=== PATIENT | female | born 1955 | race Caucasian/White ===

== ENCOUNTER 2016-09-11 08:31 | Day surgery (SDC) ==
[2016-09-11] MEDS ORDERED: VERSED ONE (09:30)
[2016-09-11] MEDS ORDERED: DIPRIVAN 20 ML VIAL IVP ONE (09:30)
[2016-09-11 10:51] VITALS: BP 118/78; TEMP 98.7
--- NOTE | 2016-09-12 09:30 | OP ---
PROCEDURE: COLON TO THE CECUM; SNARE POLYPECTOMY. ENDOSCOPIST: Dmitry LOCKWOOD M.D. INDICATION: History of Polyps. INSTRUMENT: [id number]-190. MEDICATION: PER ANESTHESIA. PROCEDURE: The patient was positioned for colonoscopy. The digital rectal exam was negative. The colonoscope was inserted through the anus and advanced to the cecum. The cecum was identified using the ileocecal valve and the appendiceal orifice as landmarks. The scope was slowly withdrawn through an adequately prepped colon. On insertion we found a small polyp at 40cm and removed used cold snare polypectomy. The remaining evaluation was normal. Retroflex exam is normal. Withdraw time is 6 minutes and 32 seconds. PLAN: 1. Suggest repeat colonoscopy in 5 years CC: Anson Buckley ADDENDUM: No photographs available for this because of equipment malfunction. ADELAIDA
== END 2016-09-11 10:55 | disposition home or self-care (01) ==
LOC: SURG 08:31
PROVIDERS: ATTEND Internal Medicine Gastroenterology
DX: Z86.010 Personal history of colon polyps (principal); D12.5 Benign neoplasm of sigmoid colon